=== PATIENT | male | born 1970 | race Caucasian/White ===

== ENCOUNTER 2017-11-11 22:23 | Emergency (ER) | payer SELFPAY, OTHER | END 2017-11-12 02:04 | disposition home or self-care (01) | LOC: FTE 22:23 | DX: S63.501A Unspecified sprain of right wrist, initial encounter (principal); S80.212A Abrasion, left knee, initial encounter; V01.10XA Pedestrian on foot injured in collision with pedal cycle in traffic accident, initial encounter | CPT/HCPCS: 29125; 99283-25 ==